=== PATIENT | female | born 2005 | race Two or more races ===

== ENCOUNTER 2023-11-26 17:13 | Emergency (ER) | payer MEDICAID ==
[~2023-11-26] VITALS: Ht 170.2 cm; Wt 101.7 kg
[2023-11-26 17:37] VITALS: TEMP 98.7; O2SAT 100
[2023-11-26] MEDS ORDERED: MELA5TAB3 MT (18:34)
[2023-11-26] MEDS ORDERED: NAPR220C61 MT (18:34)
[2023-11-26 19:35] VITALS: BP 143/87; PULSE 84; RESP 16
== END 2023-11-26 19:37 | disposition home or self-care (01) ==
LOC: ER 17:13
DX: R51.9 Headache, unspecified (principal)
CPT/HCPCS: 99282